=== PATIENT | female | born 1975 | race Caucasian/White ===

== ENCOUNTER 2019-11-20 18:04 | Observation (INO) ==
[2019-11-20 22:35] LABS: Basophils # 0.1 10*3/uL (0.0-0.2); Eosinophils # 0.1 10*3/uL (0.0-0.87); Eosinophils % 1.4 % (0.00-10.9); Hematocrit 44.8 VOL% (35.7-47.0); Hemoglobin 14.6 GM/DL (12.0-16.0); Immature Granulocytes % 0.2 %; Immature Granulocytes Absolute 0.02 #; Lymphocytes # 2.5 10*3/uL (1.4-4.0); Lymphocytes % 30.8 % (21.3-54.2); Mean Corpuscular HGB Conc 32.6 GM/DL (32-36); Mean Corpuscular Volume 93.1 FL (87-102); Mean Platelet Volume 9.7 FL (9.6-12.0); Monocytes % 10.1 % (1.7-12.7); Neutrophils % 56.5 % (38.7-73.9); Platelet Count 309 T/CUMM (130-400); Red Blood Count 4.81 MC/CUMM (3.8-5.5); Red Cell Distribution Width 13.2 % (9.3-17.3)
[2019-11-20] MEDS ORDERED: methylPREDNISolone SOD SUC 125 MG/2 ML VIAL IV STA (22:49)
[2019-11-20 22:59] LABS: Alanine Aminotransferase 18 U/L (13-56); Albumin 3.9 G/DL (3.4-5.0); Alkaline Phosphatase 94 U/L (45-117); Aspartate Amino Transferase 11 U/L (0-37); Blood Urea Nitrogen 9 MG/DL (7-18); Calcium 8.9 MG/DL (8.5-10.1); Estimated Glom Filtration Rate 108 ML/MIN; Glucose 88 MG/DL (74-106); Total Protein 7.7 G/DL (6.4-8.3)
[2019-11-20 23:37] LABS: Sedimentation Rate-Westergren 6 MM/HR (0-20)
[2019-11-21] MEDS ORDERED: NICOTINE 21 MG/24 HR PATCH TRANSDERM PRN (01:59)
[2019-11-21] MEDS ORDERED: ACETAMINOPHEN 325 MG TABLET PO PRN (01:59)
[2019-11-21] MEDS ORDERED: diphenhydrAMINE CAP 25 MG CAPSULE PO PRN (01:59)
[2019-11-21] MEDS ORDERED: GLUCAGON 1 MG VIAL IM PRN (01:59)
[2019-11-21] MEDS ORDERED: DEXTROSE 50% 25 GM/50 ML VIAL IV PRN (01:59)
[2019-11-21] MEDS ORDERED: hydrALAZINE 20 MG/1 ML VIAL IV PRN (01:59)
[2019-11-21] MEDS ORDERED: ONDANSETRON 4 MG/2 ML VIAL IV PRN (01:59)
[2019-11-21] MEDS ORDERED: POTASSIUM CHLORIDE 20 MEQ TABLET PO STA (03:04)
[2019-11-21 05:10] LABS: Risk Ratio 2.96
[2019-11-21] MEDS ORDERED: DIAZEPAM 5 MG TABLET PO ONE (08:00)
[2019-11-21] MEDS ORDERED: POTASSIUM CHLORIDE 20 MEQ TABLET PO ONE (08:04)
[2019-11-21] MEDS ORDERED: LORazepam 2 MG/1 ML VIAL IV PRN (08:49)
[2019-11-21] MEDS: ENOXAPARIN 40 MG/0.4 ML SYRINGE SUBCUT SCH (10:26)
[2019-11-21] MEDS: methylPREDNISolone SOD SUC 40 MG/1 ML VIAL IV SCH ×3 (10:26→23:39)
[2019-11-22 06:02] LABS: Basophils % 0.1 % (0.0-0.8); Hematocrit 42.2 VOL% (35.7-47.0); Hemoglobin 13.9 GM/DL (12.0-16.0); Immature Granulocytes % 0.6 %; Immature Granulocytes Absolute 0.08 #; Lymphocytes # 1.1 10*3/uL (1.4-4.0); Mean Corpuscular HGB Conc 32.9 GM/DL (32-36); Mean Corpuscular Volume 91.7 FL (87-102); Mean Platelet Volume 10.7 FL (9.6-12.0); Monocytes % 2.1 % (1.7-12.7); Neutrophils % 89.2 % (38.7-73.9); Platelet Count 265 T/CUMM (130-400); Red Cell Distribution Width 13.2 % (9.3-17.3); White Blood Count 13.6 T/CUMM (4-12)
[2019-11-22 07:05] LABS: Calcium 8.9 MG/DL (8.5-10.1); Osmolality,Calculated 277.7 MOS/KG (273-304)
[2019-11-22] MEDS: methylPREDNISolone SOD SUC 40 MG/1 ML VIAL IV SCH ×2 (08:41→15:08)
[2019-11-22] MEDS: ENOXAPARIN 40 MG/0.4 ML SYRINGE SUBCUT SCH (08:41)
[2019-11-22] MEDS: CHOLECALCIFEROL 1,000 UNIT TABLET PO SCH (09:26)
[2019-11-22] MEDS: predniSONE 20 MG TABLET PO SCH (23:55)
[2019-11-23 05:14] LABS: Basophils % 0.1 % (0.0-0.8); Hematocrit 41.7 VOL% (35.7-47.0); Hemoglobin 13.6 GM/DL (12.0-16.0); Immature Granulocytes % 0.5 %; Immature Granulocytes Absolute 0.06 #; Lymphocytes # 1.4 10*3/uL (1.4-4.0); Lymphocytes % 11.1 % (21.3-54.2); Mean Corpuscular HGB Conc 32.6 GM/DL (32-36); Mean Corpuscular Volume 92.7 FL (87-102); Mean Platelet Volume 10.4 FL (9.6-12.0); Monocytes % 4.3 % (1.7-12.7); Platelet Count 273 T/CUMM (130-400); Red Cell Distribution Width 13.4 % (9.3-17.3); White Blood Count 12.7 T/CUMM (4-12)
[2019-11-23 05:39] LABS: Calcium 8.8 MG/DL (8.5-10.1); Osmolality,Calculated 286.1 MOS/KG (273-304)
[2019-11-23 06:28] LABS: HIV Antigen/Antibody Result Nonreactive (Nonreactive); Vitamin B12 442 PG/ML (211-911)
[2019-11-23 07:44] LABS: PT Patient Result 10.5 SECS (9.8-11.9)
[2019-11-23] MEDS: CHOLECALCIFEROL 1,000 UNIT TABLET PO SCH (08:53)
[2019-11-23] MEDS: ENOXAPARIN 40 MG/0.4 ML SYRINGE SUBCUT SCH (08:57)
[2019-11-23] MEDS: predniSONE 20 MG TABLET PO SCH (08:57)
[2019-11-23 10:16] LABS: Glucose,CSF 68 MG/DL (40-70)
[2019-11-23 10:28] LABS: Lymphocytes,CSF 48 %; Monocytes,CSF 6 %; Neutrophils,CSF 46 %; Red Blood Cell,CSF 9012 C/CUMM; White Blood Cell,CSF 74 C/CUMM
[2019-11-23 10:29] LABS: Appearance,CSF Hazy
[2019-11-23 12:03] VITALS: BP 103/58
[2019-11-23] MEDS ORDERED: POTASSIUM CHLORIDE 20 MEQ TABLET PO ONE (12:57)
[2019-11-24 12:35] LABS: VDRL Spinal Fluid Negative (Negative)
[2019-11-27 08:16] LABS: Antinuclear Ab, S 0.4 U
== END 2019-11-23 15:19 | disposition home or self-care (01) ==
LOC: N.ED 18:04 → N.EDINP 18:04 → N.TELEN 11-21 14:00
PROVIDERS: ADMIT Hospitalist; ATTEND Hospitalist